=== PATIENT | female | born 1965 | race Two or more races ===

== ENCOUNTER 2020-05-24 09:12 | Outpatient (CLI) | payer OTHER | END 2020-05-24 23:59 | disposition home or self-care (01) | LOC: LAB 09:12 | PROVIDERS: ATTEND Student in an Organized Health Care Education/Training Program | DX: Z01.812 Encounter for preprocedural laboratory examination (principal); Z20.822 Contact with and (suspected) exposure to COVID-19 | CPT/HCPCS: 87426; C9803 ×2; U0003 ==

== ENCOUNTER 2020-05-29 10:18 | Day surgery (SDC) | payer OTHER ==
[2020-05-29] MEDS ORDERED: ANESTHESIA TRAY IN PYXIS 1 EA TRAY MC ONE (10:46)
[2020-05-29] MEDS ORDERED: BUPIVACAINE 0.5 % PF 150 MG/30 ML VIAL ONE (10:50)
[2020-05-29] MEDS ORDERED: BACITRACIN 50000 UNITS/VIAL ONE (10:50)
[2020-05-29 12:10] LABS: COLOR,URINE YELLOW (YELLOW); PH,URINE 6.5 (5.0-8.0); PROTEIN,URINE NEGATIVE (NEGATIVE)
[2020-05-29 12:11] LABS: BILIRUBIN,URINE NEGATIVE (NEGATIVE); UGLUCOSE NEGATIVE (NEGATIVE)
[2020-05-29 12:12] LABS: LEUKOCYTE ESTERASE ,URINE NEGATIVE (NEGATIVE); NITRITE, URINE NEGATIVE (NEGATIVE); UROBILINOGEN,URINE 0.2 EU/dL (0.2)
[2020-05-29] MEDS ORDERED: MIDAZOLAM HCL 2 MG/2ML VIAL ONE (12:36)
[2020-05-29] MEDS ORDERED: FENTANYL PF 250MCG/5ML AMPUL ONE (12:37)
[2020-05-29] MEDS ORDERED: SEVOFLURANE 250 ML BOTTLE IH ONE (12:59)
== END 2020-05-29 16:10 | disposition home or self-care (01) ==
LOC: DS 10:18
PROVIDERS: ATTEND Student in an Organized Health Care Education/Training Program
DX: M77.01 Medial epicondylitis, right elbow (principal); Z88.5 Allergy status to narcotic agent; I10 Essential (primary) hypertension; I48.91 Unspecified atrial fibrillation; Z79.899 Other long term (current) drug therapy
CPT/HCPCS: 24341; 71045; 81003; 84703; A4565; A6402; J0690; J1885; J2250; J2704; J2765; J3010; J3490 ×2